=== PATIENT | male | born 1985 | race Caucasian/White ===

== ENCOUNTER 2021-06-05 | Emergency (ER) | payer SELFPAY ==
[2021-06-05] VITALS: BP 148/81
[~2021-06-05] VITALS: Ht 182.9 cm; Wt 90.7 kg
--- NOTE | 2021-06-05 | NUR ---
PT BIB [facility], PRE-BOOK. TAKEN TO CHAIR
[2021-06-05 00:25] VITALS: BP 148/81
--- NOTE | 2021-06-05 00:26 | NUR ---
PATIENT BIB [facility]. PATIENT EXAMINED BY DR. ARAUZ. PATIENT MEDICALLY CLEARED AND RELEASED IN CUSTODY IN STABLE CONDITION. ORIGINAL PRE-BOOK FORM GIVEN TO OFFICER MANDEEP.
== END 2021-06-05 00:26 ==
LOC: EDBD → MED
DX: F10.129 Alcohol abuse with intoxication, unspecified (principal); Z02.89 Encounter for other administrative examinations; V89.2XXA Person injured in unspecified motor-vehicle accident, traffic, initial encounter; Y93.89 Activity, other specified; Y92.89 Other specified places as the place of occurrence of the external cause; Y99.8 Other external cause status
CPT/HCPCS: 99283